=== PATIENT | male | born 1945 | race Caucasian/White ===

== ENCOUNTER → 2016-09-18 | Outpatient (CLI) | payer OTHER ==
[~2016-09-18] MED LIST: BAYER ASPIRIN325 M1 PO; CIPRO250 MG PO; FLOMAX0.4 M1 PO; GLIPIZIDE10 MG PO; LIPITOR20 MG PO; LOSARTAN POTASS50 MG PO; METFORMIN PO; NORCO1 TAB 10/3 PO
[2016-09-18 10:41] LABS: BUN/CREATININE RATIO 24.44; CALCIUM SERUM 9.3 mg/dL (8.4-10.2); CREATININE SERUM 0.9 mg/dL (0.6-1.4); POTASSIUM 4.5 mmol/L (3.5-5.1)
== END | disposition home or self-care (01) ==
LOC: SLAB 10:07
PROVIDERS: Internal Medicine
DX: E11.9 Type 2 diabetes mellitus without complications (principal)
CPT/HCPCS: 36415; 80048; 83036